=== PATIENT | male | born 1990 | race Caucasian/White ===

== ENCOUNTER → 2017-04-20 | Outpatient (CLI) | payer OTHER ==
[~2017-04-20] MED LIST: ALBU2.5I INH; AMOX500C PO; BACL20TA PO; BECL80AE3 INH; BENEPOW5 GT; CATHETER XX; CHLO.12%30 MT; CHLO.12%30 SWISH-SPIT; DIAZ10TA GT; ENSURE PLUS PEG; Ensure PEG; IBUP600T26 GT; IPRA0.02 INH; LACO50 PO; LANSO30 TUBE; LEVA500T PO; LEVE750T8 GT; PERC5TAB12 PEG; POLY119S GT; PREV30CA36 PO; PREV30TA3 G-TUBE; ROBI1TAB GT; TYLE500T GT; VENTAER INH; WHEEMIS3; Z.0.OXYGEN INH; ZINC20OI TOP; [UNRECOGNIZED DRUG - CODE] IR; [UNRECOGNIZED DRUG - SUPPLY]; [UNRECOGNIZED DRUG - SUPPLY] XX; [UNRECOGNIZED DRUG - SUPPLY] XX
== END ==
LOC: CLAB 13:45
DX: J18.9 Pneumonia, unspecified organism (principal)
CPT/HCPCS: 87070; 87205